=== PATIENT | female | born 1990 | race Caucasian/White ===

== ENCOUNTER 2016-08-10 15:24 | Inpatient (IN) | payer OTHER ==
[~2016-08-10] VITALS: Ht 162.6 cm; Wt 69.3 kg
[~2016-08-10 15:24] MED LIST: OXYC-466 PO; POLY17PO6 PO; SULF1TAB34 PO
[2016-08-10 15:35] VITALS: BP 125/75; PULSE 113; RESP 18; O2SAT 100
[2016-08-10 18:51] LABS: BASOPHILS % (AUTO) 0.3 % (0-3); EOSINOPHILS % (AUTO) 1.1 % (0-5); MONOCYTES % (AUTO) 8.4 % (4-12); Mean Corpuscular Hemoglobin 25.4 pg (27.0-35.0); Mean Corpuscular Volume 77.1 fL (81-100); NEUTROPHILS % (AUTO) 70.7 % (40-74); Platelet Count 363 bil/L (150-400)
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
[2016-08-10 20:11] VITALS: BP 96/55; PULSE 99; RESP 18; O2SAT 100
--- NOTE | 2016-08-10 20:54 | DRSVH ---
PROCEDURE: US EXTREMITY SONOGRAM LIMITED ([id number]) INDICATIONS: Multiple Abscess TECHNIQUE: Real-time scanning was performed of the bilateral hip regions, with image documentation. COMPARISON: None. FINDINGS: There are large regions of subcutaneous edema on the bilateral hips delineated by the ecological technical officer during the study. Within these regions are multiple small cystic areas, some of which have an anecho ic appearance, some of which have a more complex appearance suggesting phlegmon. The largest complex fluid collection on the right side measures 6.4 x 3.2 x 7.5 cm. The largest cystic region on the righ t side measures 2.2 x 1.0 x 1.3 cm. The largest cystic region on the left side measures 1.8 x 0.9 x 1 .5 cm. IMPRESSION: 1. Diffuse cellulitis bilaterally overlying the hips as described above. Multiple cystic-appearing re gions within suggest the presence of multiple subcutaneous abscess these. Additionally, there is a la rge complex fluid collection overlying the right hip suspicious for phlegmon. These findings were discussed with Dr. Zendejas and Dr. Huber at the time of the study by the [place] [facility] department tech. Dictated by: Candace Aguiar M.D. on 08/10/2016 at 20:52 Approved by: Candace Aguiar M.D. on 08/10/2016 at 20:52
[2016-08-10] MEDS ORDERED: HYDROmorphone 1 mg/mL Inj IVPUSH ONE ×2 (21:40→23:10)
[2016-08-10] MEDS ORDERED: Clindamycin Inj 600 MG in IV Premix 1 EACH IV ONE (21:55)
[2016-08-10] MEDS ORDERED: CeFAZolin Inj 2 GM in IV Premix 1 EACH IV ONE (21:55)
[2016-08-10 21:58] VITALS: BP 113/72; PULSE 91; RESP 18; O2SAT 97
--- NOTE | 2016-08-10 22:15 | DRSVH ---
PROCEDURE: CT PELVIS WITH CONTRAST ([id number]) INDICATIONS: Abscess multiple Bilateral TECHNIQUE: After the administration of intravenous contrast, 5 mm thick sections acquired from the iliac crests to the symphysis. 5 mm coronal and sagittal reformats were acquired. For radiation dose reduction, the following was used: automated exposure control, adjustment of mA and/or kV according to patient size. COMPARISON: None. FINDINGS: Image quality: Excellent. Peritoneum and bowel: A large amount of inspissated stool is present within the visualized portions o f the colon. Genitourinary: Bladder wall thickness is normal. The uterus and ovaries are grossly unremarkable. Nodes and vessels: There are multiple enlarged bilateral inguinal lymph nodes. Distal enlarged iliac chain lymph nodes are present as well. Iliac vessels demonstrate normal size and enhancement. Bones: No suspicious bony lesions. No suspicious cortical thinning to suggest osteomyelitis. Miscellaneous: No inguinal hernias. There is diffuse fat stranding throughout the subcutaneous tiss ues overlying the buttocks bilaterally. There is a discrete right-sided fluid collection measures 2.8 x 2.9 x 4.4 cm. There are multiple punctate foci of subcutaneous gas bilaterally. No other discrete rim-enhancing fluid collections visualized. IMPRESSION: 1. Diffuse fat stranding throughout the subcutaneous tissues overlying the bilateral buttocks as desc ribed above consistent with diffuse cellulitis. 2. Discrete rim-enhancing fluid collection within the right subcutaneous tissues as described above c onsistent with abscess/phlegmon. 3. Inguinal and iliac adenopathy, likely reactive in nature secondary to widespread infection. 4. Large amount of inspissated stool throughout the visualize portions of the colon. Dictated by: Candace Aguiar M.D. on 08/10/2016 at 22:13 Approved by: Candace Aguiar M.D. on 08/10/2016 at 22:13
[2016-08-10] MEDS ORDERED: Ondansetron 2 mg/mL 2 mL Inj IVPUSH PRN (22:30)
[2016-08-10] MEDS ORDERED: Alum-Mag Hydrox-Simeth 30 mL Suspension PO PRN (22:30)
[2016-08-10 23:18] VITALS: BP 108/71; PULSE 78; RESP 18; O2SAT 95
[2016-08-10 23:49] VITALS: BP 109/67; PULSE 88; RESP 18; O2SAT 95
[2016-08-11] VITALS (9 sets, daily range): BP systolic 99–122; BP diastolic 52–68; PULSE 64–97; RESP 11–19; O2SAT 94–100
[2016-08-11] MEDS ORDERED: 0.9% Sodium Chloride 1,000 ML IV SCH (01:26)
[2016-08-11] MEDS ORDERED: Polyethylene Glycol (PEG) 17 Gm Powder PO PRN (01:30)
--- NOTE | 2016-08-11 05:26 | NUR ---
Admit Pt arrived to [facility] room 238-1 from ED around 2345. Pt was able to self transfer to bed. PT is A&O x3 and able to ZAVALETA. Pt is stating 10/10 pain in her abscesses which are located on her buttocks as well as hips. Pt will be seen by surgery in AM. Pt is independent in room. 1-2 mg PRN Morphine available Q4 for pain and NS @ 100 was started. PT is oriented to hospital policies, call light and room. Pt is accompanied by her mother. VSS and pt is not on Tele.
--- NOTE | 2016-08-11 05:56 | PCM.HPMED ---
Subjective Date of Service Aug 11, 2016 Primary Provider: Admitting Physician: Abel Diaz MD Primary Care Physician: Nopcp Attending Physician: Abel Diaz MD Chief Complaint: buttock abscesses History of Present Illness: Patient is a 26 year old female with a pmh of iv drug abuse, ptsd and anxiety that is presenting with multiple buttock abscesses. Patient has been using heroin consistently for the past few months. Patient has been injecting heroin into her buttocks and as a result some of the sites have been infected. Patient claims that they usually start as a erythematous bump but then it evolves into a more painful and larger area of erythema. Patient continued to inject heroin around these areas and eventually they became too painful to bear. Patient is currently here for the aforementioned since these have evolved into karoline abscesses that require surgical drainage. Patient is currently in pain but stable. Review of Systems: Hematologic: No bleeding, No bruising Constitutional: Denies: Chills, Fever Respiratory: Denies: Shortness of breath, Wheezing Cardiovascular: Reports: Edema, Denies: Chest pain, Palpitations, Syncope GI: Reports: Constipation, Denies: Abdominal pain, Diarrhea, Nausea, Vomiting Skin: Reports Swelling, Denies Bruising Female: Denies: Dysuria, Hematuria, Pelvic pain, Neurologic: Denies: Bowel dysfunction, Change LOC, Dizziness, Focal weakness, Headache, Numbness, Problem walking, Weakness Psychiatric: Reports: Anxiety Allergies Coded Allergies: vancomycin (Verified Allergy, Mild, Rash at injection site, 08/10/16) Home Medications none PMH h/o substance abuse PTSD Anxiety Surgical History Appendectomy [place] teeth Family History mother is currently abusing narcotics Social History Hx Alcohol Use: No Hx Substance Use: Yes (Heroin user. used this afternoon) Hx Tobacco Use: Yes Smoking Status: Current Every Day Smoker Exam Vital Signs Vital Sign - Last Date Time Temp Pulse Resp B/P Pulse Ox O2 Delivery O2 Flow Rate FiO2 08/10/16 23:49 36.6 88 18 109/67 95 Room Air Exam General: Mild distress, well-developed, well-nourished, appropriately interactive HEENT: Normocephalic, atraumatic. External ears without defect. Pupils equal, round, and reactive to light and accommodation. Cardiovascular: Regular rate and rhythm with no murmurs, rubs, or gallops appreciated Pulmonary: Clear to auscultation bilaterally with no crackles, wheezes, or rhonchi. Normal respiratory effort with no use of accessory muscles. Extremities: Upper posterior and lateral thighs/buttock area bilaterally erythematous with tenderness to palpation. Patient does have raised 5 cm x 5 cm significant swelling right buttock. Neurological: Cranial nerves grossly intact. Normal muscle strength, tone, and bulk. Reflexes, coordination, and sensory function within normal limits. No known gait impairment. Psychiatric: Normal mood and affect. Alert and oriented to person, place, and time. Lab and Diagnostics Result Diagram: 08/10/16184408/10/162054 X-Rays, CTs and MRIs US EXTREMITY SONOGRAM LIMITED IMPRESSION: 1. Diffuse cellulitis bilaterally overlying the hips as described above. Multiple cystic-appearing regions within suggest the presence of multiple subcutaneous abscess these. Additionally, there is a large complex fluid collection overlying the right hip suspicious for phlegmon. Dictated by: Candace Aguiar M.D. on 08/10/2016 at 20:52 CT PELVIS WITH CONTRAST ([id number]) IMPRESSION: 1. Diffuse fat stranding throughout the subcutaneous tissues overlying the bilateral buttocks as described above consistent with diffuse cellulitis. 2. Discrete rim-enhancing fluid collection within the right subcutaneous tissues as described above consistent with abscess/phlegmon. 3. Inguinal and iliac adenopathy, likely reactive in nature secondary to widespread infection. 4. Large amount of inspissated stool throughout the visualize portions of the colon. Assessment & Plan Patient is a 26 year old female that is presnting with multiple abscesses in her buttocks secondary to injecting heroin. Patient is currently stable. Buttocks Abscess - Patient has multiple areas of abscesses as seen on ct and ultrasound - Surgery was consulted and they are on board for I&D today. - Patient is allergic to penicillins, so patient was started on clindamycin and ancef - Areas of cellulits were marked to monitor for progression - follow up am labs for coagulation profile and repeat cbc - wound care after I and D is done IV drug abuse - Patient is a known heroin abuser - Patient claims that she is ready to quit - Will provide assistance in terms of methadone program or as patient has expressed interest in suboxone treatment - will use opiate judiciously while in patient Smoking abuse - Patient smoke cigarettes - pt again claims she is ready to quit - will provide nicotine patch if necessary Hematuria - Patient claims that she has persistent hematuria - Patient has an appropriate hemoglobin level - will obtain UA Pt lives at home with her bf Dvt ppx via enoxaparin GI ppx not warranted Abel Diaz MD Aug 11, 2016 05:56
[2016-08-11] MEDS ORDERED: CeFAZolin Inj 1 GM in IV Premix 1 EACH IV SCH (08:30)
[2016-08-11] MEDS ORDERED: Clindamycin Inj 600 MG in IV Premix 1 EACH IV SCH (08:30)
[2016-08-11] MEDS ORDERED: Dexamethasone 4 mg/mL Inj IVPUSH PRN (10:35)
[2016-08-11] MEDS ORDERED: HYDROmorphone 1 mg/mL Inj IVPUSH PRN (10:35)
[2016-08-11] MEDS ORDERED: Lactated Ringer's 500 ML IV PRN (10:35)
[2016-08-11] MEDS ORDERED: Ondansetron 2 mg/mL 2 mL Inj IVPUSH PRN (10:35)
[2016-08-11] MEDS ORDERED: Phenylephrine 10,000 mCg/mL Inj IVPUSH PRN (10:35)
[2016-08-11] MEDS ORDERED: Lactated Ringer's 1,000 ML IV SCH (10:35)
[2016-08-11] MEDS ORDERED: EPHEDrine Sulfate 50 mg/mL Inj IVPUSH PRN (10:35)
[2016-08-11] MEDS ORDERED: MetoCLOpramide 5 mg/mL 2 mL Inj IVPUSH PRN (10:35)
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
[2016-08-11] MEDS ORDERED: Lactated Ringer's 1,000 ML IV ONE (10:47)
--- NOTE | 2016-08-11 10:51 | NUR ---
Social Work Note: Screen Note Data& Assessment: EMR reviewed. Patient is a 26 year old female admitted on 08/10/2015 with multiple abscess secondary to heroin use. Pt has Daniele ECKERT for insurance coverage. Patient does not have a primary care listed. Pt lives in [place] with family and is independent at baseline. Pt is currently Ambulates/BRP in her room. SW will access for CD resources. SW to continue to follow if any needs arise. Plan: Anticipated discharge home via POV when medically ready. SW will access for CD resources. SW to continue to follow if any needs arise. Millicent Luna, FRANKIE, ACM
[2016-08-11 10:58] LABS: APPEARANCE,URINE HAZY (CLEAR,HAZY); COLOR,URINE DARK YELLOW (YELLOW)
[2016-08-11 10:59] LABS: OCCULT BLOOD,URINE NEGATIVE (NEGATIVE); UROBILINOGEN,URINE NORMAL (NORMAL)
[2016-08-11] MEDS ORDERED: Bupivacaine-MPF 0.5% W/EPI 30 mL Inj INFILTRATE ONE (11:10)
--- NOTE | 2016-08-11 11:24 | PCM.ANEP1 ---
Post Anesthesia Phase 1 PACU Phase 1 Assessment Vital Signs Vital Signs Date Time Temp Pulse Resp B/P Pulse Ox O2 Delivery O2 Flow Rate FiO2 08/11/16 06:16 36.9 64 18 99/53 100 Room Air Anesthetic Administered: GA Level of Alertness: Awake, talking ZAVALETA's with Equal Strength: Yes Pain: Yes Pain Scale Score: 10 Nausea or Vomiting: No Oxygen Delivery: Room Air Lungs: Clear to Auscultation Dermatome Level: Full Sensation Edgard Helms MD Aug 11, 2016 11:24
[2016-08-11] MEDS ORDERED: Acetaminophen IV 1,000 MG in IV Premix 1 EACH IV PRN (11:25)
--- NOTE | 2016-08-11 11:34 | NUR ---
[place] Patient brought to OR via gurney. A/O x4. Denies n/v, pain level 9/10.
[2016-08-11] MEDS: fentaNYL-PF 50 mCg/mL 2 mL Inj IVPUSH PRN ×2 (11:40→11:50)
--- NOTE | 2016-08-11 11:53 | CONS ---
[address] [address] CONSULTATION REPORT PATIENT: GIDEON GREGORIO : 1990 MR#: [id number] ADMIT: 08/10/2016 JOB ID: [id number] DATE OF SERVICE: 08/11/2016 CHIEF COMPLAINT/IDENTIFICATION: I am asked to see this 26-year-old female with buttock and hip soft tissue infection. HISTORY OF PRESENT ILLNESS: The patient reports injecting herself in her buttocks and hips with heroin with most recent injection being within the past 12 hours. She has had previous incision and drainage. PAST MEDICAL HISTORY: Substance abuse, PTSD, anxiety, appendectomy, tooth extraction. MEDICATIONS: None. ALLERGIES: VANCOMYCIN. SOCIAL HISTORY: Negative alcohol. Current tobacco use. Mother is here with the patient and has a history of narcotic use. FAMILY HISTORY: Not pertinent. REVIEW OF SYSTEMS: Not pertinent. PHYSICAL EXAMINATION: Tearful woman who immediately is asking for pain medications when I walk into the room. Vital signs: She is afebrile. Vital signs are stable. Direct examination of her buttocks and hips reveals marked induration throughout her buttocks but without subcutaneous crepitus. She does have induration on the buttocks and on the left hip but an obvious fluctuant mass on the right hip. LABORATORY DATA: Hematocrit is 31. White count is 14. Chemistries within normal limits. Lactic acid was 1.1. IMAGING: The patient had a CT scan of the pelvis, and I have reviewed the report and the films. This demonstrates what appears to be an abscess on the right hip and findings most consistent with cellulitis on the buttocks but with some little bubbles of air on the subcutaneous tissues of the buttocks. IMPRESSION AND PLAN: A 26-year-old otherwise healthy woman except for her substance abuse with an obvious right hip abscess. I think that the subcutaneous air on the buttocks represents her subcutaneous injection rather than a necrotizing soft tissue infection based on her clinical picture. We will go to the operating room today, and I will drain her hip abscess. I will also take as another close look at her buttocks to make certain that we are not having some sort of progressive soft tissue gas-producing infection. ADDITIONAL INFORMATION: My postoperative recommendation for pain control would be to not give her any intravenous narcotics but restrict her to intravenous acetaminophen and p.o. Motrin, not as a punitive or judgmental action but because her underlying disease is one of IV substance abuse. I believe that the minimal added analgesic benefit that she will receive from intravenous Dilaudid or morphine compared to IV acetaminophen and p.o. Motrin is far outweighed by continuing her on her intravenous narcotic use. Addenda added by JUAN 08/11/16 at 1:22pm
--- NOTE | 2016-08-11 11:57 | OP ---
[address] [address] OPERATIVE REPORT PATIENT: GIDEON GREGORIO : 1990 MR#: [id number] ADMIT: 08/10/2016 JOB ID: [id number] DATE OF SURGERY: 08/11/2016 PREOPERATIVE DIAGNOSIS(ES): Right hip abscess. POSTOPERATIVE DIAGNOSIS(ES): Right hip abscess. PROCEDURE: Incision and drainage right hip abscess. SURGEON: Kade Gill MD INDICATIONS: A 26-year-old female with a right hip abscess, as well as concerns regarding cellulitis with some subcu air on her buttocks. FINDINGS: See below. DESCRIPTION OF PROCEDURE: The patient was brought to the operating room, and general anesthetic was administered with an LMA device. She was positioned on her left hip. Prior to positioning, I had an opportunity to examine the left hip. Then after positioning, I examined both bilateral buttocks. Induration was no different than it had been when I had seen her several hours previously, and there is no subcutaneous air. There was no fluctuance except the obvious fluctuance on the right hip. Clinically, it did not appear that she had a necrotizing soft tissue infection but that the subcutaneous air seen on her CT scan more likely represented her self injection. After prepping and draping the right hip in a sterile fashion and aspirating it for approximately 3 cc of brown pus, we did our surgical time-out, followed scope protocol. She was on therapeutic antibiotics. After prepping and draping the area in question, I made a longitudinal incision directly over the pus pocket and expressed several hundred cc of purulent material mixed chocolate and white pus. I now T'ed the incision up for approximately 2 cm and then irrigated out the cavity, breaking up all loculations and making certain that the fascial planes were intact. The cavity was approximately 12 x 10 x 7 cm, and after irrigation and checking for adequate hemostasis, we unpacked the wound and put a dry dressing on. Patient is recovering in Anesthesia right now.
--- NOTE | 2016-08-11 12:00 | NUR ---
back to room Patient return to room from surgery, pain level of 9/10. Right hip covered with dressing no drainage. Made comfortable.
--- NOTE | 2016-08-11 12:07 | PCM.ANEP2 ---
Post Anesthesia Evaluation ASA/CMS Post Anesthesia VS in Patient's Normal Range?: Yes Resp Stable; Airway Patent?: Yes CV Function & Hydration Stable: Yes Mental Status Recovered?: Yes Pain control Satisfactory?: Yes N/V Control Satisfactory?: Yes Edgard Helms MD Aug 11, 2016 12:07
[2016-08-11] MEDS ORDERED: HYDROcodone-APAP 5-325 mg Tablet PO PRN (15:10)
[2016-08-11] MEDS ORDERED: Phenylephrine/NS-PF 100 mCg/mL 5 mL Syringe IVPUSH ONE (15:46)
[2016-08-11] MEDS ORDERED: HYDROmorphone 2 mg/mL Inj ONE (15:46)
[2016-08-11] MEDS ORDERED: Ondansetron 2 mg/mL 2 mL Inj ONE (15:46)
[2016-08-11] MEDS ORDERED: Ketamine 10 mg/mL 20 mL Inj ONE (15:46)
[2016-08-11] MEDS ORDERED: Dexamethasone 4 mg/mL Inj ONE (15:46)
[2016-08-11] MEDS ORDERED: fentaNYL-PF 50 mCg/mL 2 mL Inj ONE (15:46)
[2016-08-11] MEDS ORDERED: Propofol 10,000 mCg/mL 20 mL Inj ONE (15:46)
--- NOTE | 2016-08-11 16:00 | NUR ---
MALINA Patient decided to be discharge MALINA, waiver signed, explained to patient the risk and she understood. She will follow up with out patient on Monday. Vicodin one tablet given for pain management prior to discharge. All belongings were given. Home accompanied by her mom.
--- NOTE | 2016-08-11 21:22 | PCM.DC.MED ---
Discharge Summary Date of Service Aug 11, 2016 Dates of Hospitalization Date of Hospital Admission Aug 10, 2016 at 22:12 Date of Discharge: Aug 11, 2016 Providers: Admitting Physician: Abel Diaz MD Primary Care Physician: Nopvan Attending Physician: Abel Diaz MD Procedures XRay, CTs & MRIs US EXTREMITY SONOGRAM LIMITED IMPRESSION: 1. Diffuse cellulitis bilaterally overlying the hips as described above. Multiple cystic-appearing regions within suggest the presence of multiple subcutaneous abscess these. Additionally, there is a large complex fluid collection overlying the right hip suspicious for phlegmon. Dictated by: Candace Aguiar M.D. on 08/10/2016 at 20:52 CT PELVIS WITH CONTRAST ([id number]) IMPRESSION: 1. Diffuse fat stranding throughout the subcutaneous tissues overlying the bilateral buttocks as described above consistent with diffuse cellulitis. 2. Discrete rim-enhancing fluid collection within the right subcutaneous tissues as described above consistent with abscess/phlegmon. 3. Inguinal and iliac adenopathy, likely reactive in nature secondary to widespread infection. 4. Large amount of inspissated stool throughout the visualize portions of the colon. Brief History Patient is a 26 year old female with a pmh of iv drug abuse, ptsd and anxiety that is presenting with multiple buttock abscesses. Patient has been using heroin consistently for the past few months. Patient has been injecting heroin into her buttocks and as a result some of the sites have been infected. Patient claims that they usually start as a erythematous bump but then it evolves into a more painful and larger area of erythema. Patient continued to inject heroin around these areas and eventually they became too painful to bear. Patient is currently here for the aforementioned since these have evolved into karoline abscesses that require surgical drainage. Patient is currently in pain but stable. Hospital Course Patient is a 26 year old female that is presnting with multiple abscesses in her buttocks secondary to injecting heroin. Following surgery the patient became upset about pain medications, she left AMA despite recommendations to stay. Buttocks Abscess - Patient has multiple areas of abscesses as seen on ct and ultrasound - Surgery was consulted and they are on board for I&D today. - Patient is allergic to penicillins, so patient was started on clindamycin and ancef - Areas of cellulits were marked to monitor for progression - follow up am labs for coagulation profile and repeat cbc - wound care after I and D is done IV drug abuse - Patient is a known heroin abuser - Patient claims that she is ready to quit - Will provide assistance in terms of methadone program or as patient has expressed interest in suboxone treatment - will use opiate judiciously while in patient Smoking abuse - Patient smoke cigarettes - pt again claims she is ready to quit - will provide nicotine patch if necessary Hematuria - Patient claims that she has persistent hematuria - Patient has an appropriate hemoglobin level - will obtain UA Pt lives at home with her bf Dvt ppx via enoxaparin GI ppx not warranted Exam Vital Signs (Last) Date Time Temp Pulse Resp B/P Pulse Ox O2 Delivery O2 Flow Rate FiO2 08/11/16 13:37 36.7 88 19 110/68 96 Room Air Test 08/10/16 18:45 08/10/16 19:05 08/10/16 20:55 White Blood Count 14.3th/mm3 (3.8-10.1) Red Blood Count 4.10mil/mm3 (3.90-5.20) Hemoglobin 10.4g/dL (12.0-15.6) Hematocrit 31.6% (35.0-46.0) Mean Corpuscular Volume 77.1fL (81-100) Mean Corpuscular Hemoglobin 25.4pg (27.0-35.0) Mean Corpuscular Hemoglobin Concent 32.9% (32.0-37.0) Red Cell Distribution Width 15.6% (12.3-15.4) Platelet Count 363bil/L (150-400) Neutrophils (%) (Auto) 70.7% (40-74) Lymphocytes (%) (Auto) 19.1% (14-46) Monocytes (%) (Auto) 8.4% (4-12) Eosinophils (%) (Auto) 1.1% (0-5) Basophils (%) (Auto) 0.3% (0-3) Urine Color Dark yellow (YELLOW) Urine Appearance Hazy (CLEAR,HAZY) Urine pH 6.0 (5.0-8.0) Urine Specific [place] 1.020 (1.003-1.035) Urine Protein Negativemg/dL (NEG,TRACE) Urine Glucose (UA) Negativemg/dL (NEGATIVE) Urine Ketones Negativemg/dL (NEGATIVE) Urine Occult Blood Negative (NEGATIVE) Urine Nitrite Negative (NEGATIVE) Urine Bilirubin Negative (NEGATIVE) Urine Urobilinogen Normalmg/dL (NORMAL) Urine Leukocyte Esterase Negative (NEGATIVE) Hold Urine Received (Received) Sodium Level 137mEq/L (134-144) Potassium Level 4.5mEq/L (3.5-5.2) Chloride Level 99mEq/L (97-108) Carbon Dioxide Level 23mmol/L (18-29) Blood Urea Nitrogen 10mg/dL (6-20) Creatinine 0.57mg/dL (0.57-1.00) Estimat Glomerular Filtration Rate 184mL/min (>59) Glucose Level 87mg/dL (60-99) Lactic Acid Level 1.1mmol/L (0.4-2.0) Calcium Level 9.0mg/dL (8.5-10.1) Total Bilirubin 0.4mg/dL (0.0-1.2) Aspartate Amino Transf (AST/SGOT) 15U/L (0-50) Alanine Aminotransferase (ALT/SGPT) 10U/L (0-32) Alkaline Phosphatase 108U/L (25-150) Total Protein 7.4g/dL (6.4-8.4) Albumin 3.4g/dL (3.4-5.0) Haroldo Mitchell DO Aug 11, 2016 21:22
== END 2016-08-11 15:47 | disposition left against medical advice (07) | DRG 383 ==
LOC: SED 15:24 → MHC 22:12 → MOC 23:41
PROVIDERS: ADMIT Internal Medicine; ATTEND Internal Medicine
PROC: 0H9HXZZ Drainage of Right Upper Leg Skin, External Approach (ICD-10-PCS; principal; 2016-08-11 10:00)
DX: L02.415 Cutaneous abscess of right lower limb (principal); L03.317 Cellulitis of buttock; F11.10 Opioid abuse, uncomplicated; F17.210 Nicotine dependence, cigarettes, uncomplicated; F41.9 Anxiety disorder, unspecified

== ENCOUNTER 2016-08-16 12:32 | Emergency (ER) | payer OTHER ==
[~2016-08-16] VITALS: Ht 160 cm; Wt 69.1 kg
[2016-08-16 12:37] VITALS: BP 136/89; PULSE 91; RESP 16; O2SAT 99
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
[2016-08-16] MEDS ORDERED: 0.9% Sodium Chloride 1,000 ML IV ONE (16:51)
[2016-08-16] MEDS ORDERED: cefTRIAXone Inj 2,000 MG in IV Premix 1 EACH IV SCH (16:55)
[2016-08-16] MEDS ORDERED: Clindamycin Inj 900 MG in IV Premix 1 EACH IV ONE (16:55)
[2016-08-16] MEDS ORDERED: HYDROmorphone 1 mg/mL Inj IM ONE ×2 (18:05→19:35)
[2016-08-16] MEDS ORDERED: Ondansetron 2 mg/mL 2 mL Inj ONE (19:49)
[2016-08-16] MEDS: HYDROmorphone 1 mg/mL Inj IVPUSH PRN ×3 (19:57→22:30)
[2016-08-16 20:12] LABS: BASOPHILS % (AUTO) 0.2 % (0-3); EOSINOPHILS % (AUTO) 0.1 % (0-5); MONOCYTES % (AUTO) 3.2 % (4-12); Mean Corpuscular Hemoglobin 24.6 pg (27.0-35.0); Mean Corpuscular Volume 78.2 fL (81-100); NEUTROPHILS % (AUTO) 84.2 % (40-74); Platelet Count 450 bil/L (150-400)
[2016-08-16 20:26] LABS: Magnesium 2.3 mg/dL (1.6-2.6)
[2016-08-16 20:30] VITALS: BP 121/70; PULSE 72; RESP 18; O2SAT 98
--- NOTE | 2016-08-16 21:24 | DRSVH ---
PROCEDURE: CT PELVIS WITH CONTRAST ([id number]) INDICATIONS: worsening right hip pain, h/o abscess TECHNIQUE: After the administration of intravenous contrast, 5 mm thick sections acquired from the iliac crests to the symphysis. 5 mm coronal and sagittal reformats were acquired. For radiation dose reduction, the following was used: automated exposure control, adjustment of mA and/or kV according to patient size. COMPARISON: FINDINGS: Image quality: Excellent. Peritoneum and bowel: Bowel loops demonstrate normal wall thickness and caliber. No free fluid or a ir. Genitourinary: Bladder wall thickness is normal. Nodes and vessels: No iliac, pelvic, or inguinal adenopathy by size criteria. Iliac vessels demonst rate normal size and enhancement. Bones: No suspicious bony lesions. Miscellaneous: No inguinal hernias. There is bilateral subcutaneous edematous change and in addition on the right a skin lesion with a bandage within the wound.. No extension of the inflammatory tissue s to the bone is seen particularly on the right. No involvement of the gluteal muscles is seen either . No evidence for undrained fluid is identified. IMPRESSION: 1. Inflammatory changes in the subcutaneous tissues but no involvement of muscles or bones can be see n. Cause of the pain in the right hip is not identified . 2. Since the previous CT of there has been drainage of the subcutaneous abscess in the right latera l hip level. Dic4/[address] [place] [address], CT, CT PELVIS W ABNER, 08/10/2016, 21:41. tated by: Mauricio Gar M.D. on 08/16/2016 at 21:22 Approved by: Mauricio Gar M.D. on 08/16/2016 at 21:22
[2016-08-16] MEDS ORDERED: _oxyCODONE/APAP 5-325 mg Tablet PO PRN (22:10)
[2016-08-16 23:11] VITALS: BP 124/78; PULSE 94; RESP 16; O2SAT 98
== END 2016-08-16 22:45 | disposition home or self-care (01) ==
LOC: SED 12:32
DX: L02.31 Cutaneous abscess of buttock (principal); R50.9 Fever, unspecified; F17.200 Nicotine dependence, unspecified, uncomplicated; Z88.1 Allergy status to other antibiotic agents
CPT/HCPCS: 36415; 72193; 80053; 83605; 83735; 85025; 87040; 96361; 96365; 96367; 96372; 96375; 99285; J0696; J1170; J2405; J7030; Q9967

== ENCOUNTER 2016-08-31 10:19 | Emergency (ER) | payer OTHER ==
[~2016-08-31] VITALS: Ht 162.6 cm; Wt 69.1 kg
[2016-08-31 10:23] VITALS: BP 134/79; PULSE 113; RESP 16; O2SAT 98
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
== END 2016-08-31 11:54 | disposition home or self-care (01) ==
LOC: SED 10:36
DX: L02.31 Cutaneous abscess of buttock (principal); L02.416 Cutaneous abscess of left lower limb; K92.1 Melena; F17.200 Nicotine dependence, unspecified, uncomplicated; Z88.1 Allergy status to other antibiotic agents

== ENCOUNTER 2016-08-31 15:31 | Observation (INO) | payer OTHER ==
[2016-08-31] VITALS (11 sets, daily range): BP systolic 118–138; BP diastolic 62–97; PULSE 66–123; RESP 11–21; O2SAT 97–100
[~2016-08-31] VITALS: Ht 162.6 cm; Wt 70.2 kg
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
[2016-08-31] MEDS ORDERED: HYDROmorphone 1 mg/mL Inj IVPUSH ONE ×2 (16:30→17:35)
[2016-08-31 16:36] LABS: BASOPHILS % (AUTO) 0.3 % (0-3); EOSINOPHILS % (AUTO) 0.6 % (0-5); Mean Corpuscular Hemoglobin 25.3 pg (27.0-35.0); NEUTROPHILS % (AUTO) 73.6 % (40-74); Platelet Count 283 bil/L (150-400)
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
[2016-08-31] MEDS ORDERED: Alum-Mag Hydrox-Simeth 30 mL Suspension PO PRN (18:05)
[2016-08-31] MEDS ORDERED: Ondansetron 2 mg/mL 2 mL Inj IVPUSH PRN ×2 (18:05→18:10)
[2016-08-31] MEDS ORDERED: Lactated Ringer's 1,000 ML IV SCH (18:06)
[2016-08-31] MEDS ORDERED: Lactated Ringer's 500 ML IV PRN (18:06)
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
[2016-08-31] MEDS ORDERED: Phenylephrine 10,000 mCg/mL Inj IVPUSH PRN (18:10)
[2016-08-31] MEDS ORDERED: MetoCLOpramide 5 mg/mL 2 mL Inj IVPUSH PRN (18:10)
[2016-08-31] MEDS ORDERED: hydrALAZINE 20 mg/mL Inj IVPUSH PRN (18:10)
[2016-08-31] MEDS ORDERED: Labetalol 5 mg/mL 4 mL Inj IV PRN (18:10)
[2016-08-31] MEDS ORDERED: Atropine 0.4 mg/mL Inj IVPUSH PRN (18:10)
[2016-08-31] MEDS ORDERED: EPHEDrine Sulfate 50 mg/mL Inj IVPUSH PRN (18:10)
[2016-08-31] MEDS ORDERED: Dexamethasone 4 mg/mL Inj IVPUSH PRN (18:10)
[2016-08-31] MEDS ORDERED: Lactated Ringer's 1,000 ML IV ONE (18:26)
[2016-08-31] MEDS ORDERED: Bupivacaine-MPF 0.5% W/EPI 30 mL Inj INFILTRATE ONE (18:44)
[2016-08-31] MEDS: fentaNYL-PF 50 mCg/mL 2 mL Inj IVPUSH PRN ×2 (19:30→19:50)
[2016-08-31] MEDS: HYDROmorphone 1 mg/mL Inj IVPUSH PRN ×2 (19:30→19:50)
--- NOTE | 2016-08-31 19:32 | PCM.ANEP1 ---
Post Anesthesia Phase 1 PACU Phase 1 Assessment Date of Service: Aug 31, 2016 Vital Signs Vital Signs Date Time Temp Pulse Resp B/P Pulse Ox O2 Delivery O2 Flow Rate FiO2 08/31/16 17:58 100 16 133/86 98 Room Air 08/31/16 15:43 37.6 123 20 138/97 98 Room Air Anesthetic Administered: GA Level of Alertness: Awake, talking ZAVALETA's with Equal Strength: Yes Pain: Yes Nausea or Vomiting: No Oxygen Delivery: Simple Mask Lungs: Normal Air Movement Natalio Swain MD Aug 31, 2016 19:32
--- NOTE | 2016-08-31 19:33 | PCM.ANEP2 ---
Post Anesthesia Evaluation ASA/CMS Post Anesthesia Date of Service: Aug 31, 2016 VS in Patient's Normal Range?: Yes Resp Stable; Airway Patent?: Yes CV Function & Hydration Stable: Yes Mental Status Recovered?: Yes Pain control Satisfactory?: Yes N/V Control Satisfactory?: Yes Natalio Swain MD Aug 31, 2016 19:33
--- NOTE | 2016-08-31 19:56 | OP ---
[address] [address] OPERATIVE REPORT PATIENT: GIDEON GREGORIO : 1990 MR#: [id number] ADMIT: 08/31/2016 JOB ID: [id number] DATE OF SURGERY: 08/31/2016 SURGEON: Basia Hughes MD PREOPERATIVE DIAGNOSIS(ES): Abscesses of the left proximal thigh, buttock, and hip. POSTOPERATIVE DIAGNOSIS(ES): Abscesses of the left proximal thigh, buttock, and hip; cellulitis. PROCEDURE PERFORMED: 1. Incision and drainage of abscesses x2, 2 cm each; one of the left hip and one of the left buttock. 2. Aspiration of subcutaneous abscesses x4; ultrasound guidance. HISTORY OF PRESENT ILLNESS: This is a 26-year-old woman with a history of IV and intramuscular heroin use who presented with abscesses of the left buttock, thigh, and hip. She had fluctuance, erythema, and pain, with small fluid collections seen on bedside ultrasound in the emergency department. FINDINGS: Several small abscesses, two of which were incised and drained, four of which were aspirated. Cultures were sent of the fluid from the largest of the abscess cavities. DESCRIPTION OF PROCEDURE: The patient was brought to the operating room and placed in supine position. General anesthesia was induced. A warming blanket was placed. Antibiotics were infused. She was repositioned into modified right lateral decubitus position. Pressure points were padded. The operative field was prepped and draped in a sterile fashion. A pause was performed to confirm the correct patient, procedure, site, and side. An 18 gauge needle was used to aspirate the most fluctuant of locations on the left hip, in the middle of a large patch of cellulitis. An abscess cavity was found and a small elliptical portion of skin was removed using electrocautery to unroof this cavity. Purulent fluid was sent for culture. It was irrigated and hemostasis was obtained. She had fluctuance at multiple additional areas of the subcutaneous tissue on the proximal thigh, hip, and buttock. An ultrasound was used to scan all of these regions, and several additional fluid collections were found. There was one on the lateral left buttock which was also incised and drained, approximately 2 cm x 1 cm in size. Four additional abscess cavities were aspirated and purulent fluid was sent for culture. On ultrasound, there were no large cavities or abscesses other than the small ones which were aspirated and incised. Marcaine 0.5% with epinephrine was injected at the incision and drainage sites. They were packed with moist gauze. Sterile dressing was placed. The patient was awakened from general anesthesia and taken to post procedural care unit in good condition. ESTIMATED BLOOD LOSS: 5 mL. SPECIMENS: Purulent fluid, sent for culture. COMPLICATIONS: None. DISPOSITION: Given that the primary pathology is associated cellulitis, she will be admitted for IV antibiotics.
--- NOTE | 2016-08-31 20:15 | NUR ---
Admit Patient arrived from OR to floor at 2014. Patient is A&Ox3. Vitals stable. Patient complains of left hip pain 05/16. Patient up independent to bathroom and around floor. Report given by Ros HARRISON.
[2016-08-31] MEDS ORDERED: Propofol 10,000 mCg/mL 20 mL Inj ONE (21:59)
[2016-08-31] MEDS ORDERED: Ketamine 10 mg/mL 20 mL Inj ONE (21:59)
[2016-08-31] MEDS ORDERED: Lidocaine PF 1% 30 mL Inj ONE (21:59)
[2016-08-31] MEDS ORDERED: fentaNYL-PF 50 mCg/mL 2 mL Inj ONE (21:59)
[2016-08-31] MEDS ORDERED: Dexamethasone 4 mg/mL Inj ONE (21:59)
[2016-08-31] MEDS ORDERED: Ondansetron 2 mg/mL 2 mL Inj ONE (21:59)
[2016-08-31] MEDS ORDERED: HYDROmorphone 2 mg/mL Inj ONE (21:59)
--- NOTE | 2016-08-31 22:25 | NUR ---
AMA Patient chose to leave hospital AMA at 2225. Patient stated that if she wasn't going to receive IV pain medication, she would be fine at home. IV was was removed. Patient filled out AMA paperwork. Patient left with family.
--- NOTE | 2016-09-06 13:59 | PCM.DC.SUR ---
Discharge Summary Date of Service: Sep 06, 2016 Date of Hospital Admission: Aug 31, 2016 at 20:14 Date of Discharge: Left AMA 08/31/16 Diagnosis at Time of Discharge Cellulitis Problems: Operation I&D left buttock/thigh abscesses Brief History and Physical: This is a 26-year-old woman who has injected heroin in the past and has a history of incision and drainage of bilateral thighs/buttocks by my partners, who presented with abscesses on the left thigh and buttock earlier today. Her white blood cell count is normal at 6.7. She is in pain and experiencing mild tachycardia, but otherwise appears stable. She was actually discharged from the emergency department and brought back for my assessment this afternoon. She is currently smoking heroin and last used it this morning by one report and last night by another report. Hospital Course: Pt underwent I&D and postoperatively was admitted for treatment of associated cellulitis. Oral but not IV pain medications were prescribed, which angered the patient, so she left AMA. Basia Hughes MD Sep 06, 2016 13:59
== END 2016-08-31 22:00 | disposition left against medical advice (07) ==
LOC: SED 15:31 → ORA 17:05 → OSC 20:14
PROVIDERS: ADMIT Surgery; ATTEND Surgery
DX: L02.31 Cutaneous abscess of buttock (principal); L02.416 Cutaneous abscess of left lower limb; M25.552 Pain in left hip; F11.20 Opioid dependence, uncomplicated; R00.0 Tachycardia, unspecified; F41.9 Anxiety disorder, unspecified; F43.10 Post-traumatic stress disorder, unspecified; Z87.891 Personal history of nicotine dependence; Z62.810 Personal history of physical and sexual abuse in childhood; Z91.410 Personal history of adult physical and sexual abuse
CPT/HCPCS: 10061; 36415; 36569; 75989; 80053; 81025; 85025; 87070; 87075; 87205; 96374; 96375; 99285; G0378; J0690; J1100; J1170; J2060; J2250; J2405; J3010; J7120

== ENCOUNTER 2016-09-10 17:46 | Emergency (ER) | payer OTHER ==
[~2016-09-10] VITALS: Ht 162.6 cm; Wt 68.2 kg
[2016-09-10 18:28] VITALS: BP 120/76; PULSE 109; RESP 18; O2SAT 100
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
[2016-09-10] MEDS ORDERED: oxyCODONE-Acetamin 10-325 mg Tablet PO ONE (20:10)
[2016-09-10] MEDS ORDERED: Trimethoprim-Sulfa 160 mg-800 mg Tablet PO ONE (20:10)
[2016-09-10] MEDS ORDERED: BUPR1TAB36 SL (21:14)
[2016-09-10] MEDS ORDERED: SULF1TAB7 PO (22:02)
[2016-09-10 22:12] VITALS: BP 123/79; PULSE 100; RESP 16; O2SAT 99
== END 2016-09-10 22:06 | disposition home or self-care (01) ==
LOC: SED 17:46
DX: L02.31 Cutaneous abscess of buttock (principal); M25.552 Pain in left hip; R10.9 Unspecified abdominal pain; R11.2 Nausea with vomiting, unspecified; F17.200 Nicotine dependence, unspecified, uncomplicated; Z88.1 Allergy status to other antibiotic agents

== ENCOUNTER 2016-09-12 17:00 | Emergency (ER) | payer OTHER ==
[~2016-09-12] VITALS: Ht 162.6 cm; Wt 65.9 kg
[~2016-09-12 17:00] MED LIST changes: +BUPR1TAB36 SL; -OXYC-466 PO; -POLY17PO6 PO; -SULF1TAB34 PO; +SULF1TAB7 PO
[2016-09-12 17:03] VITALS: BP 125/80; PULSE 82; RESP 16; O2SAT 100
[2016-09-12 19:30] VITALS: BP 119/76; PULSE 79; RESP 16; O2SAT 100
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
[2016-09-12] MEDS ORDERED: CLON2TAB PO (20:10)
[2016-09-12] MEDS ORDERED: LORazepam 2 mg Tablet PO ONE (20:10)
[2016-09-12 20:39] VITALS: BP 119/76; PULSE 79; RESP 16; O2SAT 100
== END 2016-09-12 20:41 | disposition home or self-care (01) ==
LOC: SED 17:00
DX: F13.230 Sedative, hypnotic or anxiolytic dependence with withdrawal, uncomplicated (principal); R56.9 Unspecified convulsions; S09.90XA Unspecified injury of head, initial encounter; W18.30XA Fall on same level, unspecified, initial encounter; Y93.89 Activity, other specified; Y92.89 Other specified places as the place of occurrence of the external cause; Y99.8 Other external cause status; Z87.891 Personal history of nicotine dependence; Z88.1 Allergy status to other antibiotic agents

== ENCOUNTER 2016-11-27 11:30 | Observation (INO) | payer OTHER ==
[~2016-11-27] VITALS: Ht 162.6 cm; Wt 59.1 kg
[2016-11-27] VITALS (13 sets, daily range): BP systolic 10–126; BP diastolic 56–79; PULSE 18–122; RESP 10–20; O2SAT 98–100
[~2016-11-27 11:30] MED LIST changes: +CLON2TAB PO
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
[2016-11-27] MEDS ORDERED: 0.9% Sodium Chloride 1,000 ML IV ONE ×2 (12:08→14:52)
[2016-11-27] MEDS ORDERED: Ondansetron 2 mg/mL 2 mL Inj IVPUSH PRN ×4 (12:10→16:35)
[2016-11-27 12:44] LABS: APPEARANCE,URINE CLOUDY (CLEAR,HAZY); COLOR,URINE YELLOW (YELLOW); OCCULT BLOOD,URINE NEGATIVE (NEGATIVE); UROBILINOGEN,URINE NORMAL (NORMAL)
[2016-11-27 13:48] LABS: BASOPHILS % (AUTO) 0.3 % (0-3); EOSINOPHILS % (AUTO) 0.8 % (0-5); Mean Corpuscular Hemoglobin 26.3 pg (27.0-35.0); Mean Corpuscular Volume 83.4 fL (81-100); NEUTROPHILS % (AUTO) 75.6 % (40-74); Platelet Count 344 bil/L (150-400)
[2016-11-27 14:15] LABS: INR 1.02 ratio
--- NOTE | 2016-11-27 14:27 | DRSVH ---
PROCEDURE: CT PELVIS WITH CONTRAST ([id number]) INDICATIONS: buttocks abscesses TECHNIQUE: After the administration of intravenous contrast, 5 mm thick sections acquired from the iliac crests to the symphysis. 5 mm coronal and sagittal reformats were acquired. For radiation dose reduction, the following was used: automated exposure control, adjustment of mA and/or kV according to patient size. COMPARISON: [facility], CT, CT PELVIS W CON, 08/16/2016, 20:45. FINDINGS: Image quality: Excellent. Peritoneum and bowel: Bowel loops demonstrate normal wall thickness and caliber. No free fluid or a ir. Genitourinary: Bladder wall thickness is normal. Nodes and vessels: No iliac, pelvic, or inguinal adenopathy by size criteria. Iliac vessels demonst rate normal size and enhancement. Bones: No suspicious bony lesions. Miscellaneous: No inguinal hernias. There is a 4.5 x 6.2 x 7.8 cm fluid collection in the subcutaneo us fat of the lower left buttock. Fluid collection has peripheral enhancement characteristic of an a bscess. There is a 1.8 x 4.9 x 3.6 cm fluid collection in the subcutaneous fat of the lower right bu ttock which has peripheral enhancement consistent with an abscess. Inflammatory stranding noted in t he subcutaneous fat of the buttocks bilaterally most consistent with cellulitis. IMPRESSION: 4.5 x 6.2 x 7.8 cm right buttock and 1.8 x 4.9 x 3.6 cm left buttock subcutaneous absces ses. Dictated by: Eli Garcia MD, PhD on 11/27/2016 at 14:23 Approved by: Eli Garcia MD, PhD on 11/27/2016 at 14:26
[2016-11-27] MEDS ORDERED: Clindamycin Inj 900 MG in IV Premix 1 EACH IV ONE (14:55)
[2016-11-27] MEDS ORDERED: Piperacillin-Tazo 3.375 Gm Inj 3.375 GM in Dextrose 5% Minibag Plus 50 ML IV ONE (14:55)
[2016-11-27] MEDS ORDERED: Alum-Mag Hydrox-Simeth 30 mL Suspension PO PRN ×2 (15:25→15:50)
[2016-11-27] MEDS ORDERED: 0.9% Sodium Chloride 1,000 ML IV SCH (15:47)
[2016-11-27] MEDS ORDERED: HYDROcodone-APAP 5-325 mg Tablet PO PRN (15:50)
[2016-11-27] MEDS ORDERED: Polyethylene Glycol (PEG) 17 Gm Powder PO PRN (15:50)
--- NOTE | 2016-11-27 15:59 | PCM.HPMED ---
Subjective Date of Service Nov 27, 2016 Primary Provider: Admitting Physician: Primary Care Physician: Vivek Attending Physician: Kaykay Sánchez MD Admit Status: From the Emergency Department Chief Complaint: Pain and swelling of buttock, right greater than left History of Present Illness: About 5-6 days ago she first noted pain and a "bump" on the left buttock which is been increasing in size and becoming more painful. She then noted one on the right but it 2 days ago and a second one on the right headache last evening , both of which are smaller than the one on the left. She says she has taken her temperature at home and not documented any fever but she does feel cold alternating with sweaty for a few hours during the night for the last few nights. Review of Systems: Unremarkable other than a URI a few weeks ago with some chest congestion which has cleared Allergies Coded Allergies: vancomycin (Verified Allergy, Mild, Rash at injection site, 08/31/16) Home Medications None PMH Heroin addiction PTSD ADHD Anxiety Surgical History Several past I&D's of abscesses Appendectomy [place] teeth removal Family History Both her parents are alive and well and she is not aware of any medical issues other than they have both had opioid addictions Social History Occupation: unemployed Hx Alcohol Use: No Hx Substance Use: Yes (Heroin user, $40 per day) Hx Tobacco Use: Yes Smoking Status: Current Every Day Smoker (a few cigarettes per day) Living Arrangement: with Family (recently moved back with her mom and stepfather, legally from ) Additional Information Has a 5-year-old son but the paternal grandparents have custody Exam Vital Signs Vital Sign - Last Date Time Temp Pulse Resp B/P Pulse Ox O2 Delivery O2 Flow Rate FiO2 11/27/16 14:17 36.5 79 15 102/58 100 Room Air Exam General: Alert and oriented, no acute distress HEENT: unremarkable Neck: Central line on right, bandage from attempt on the left Heart: Regular, no extra sounds Lungs: Clear Abdomen: Soft, non-tender Buttocks: On the left is a large erythematous, fluctuant mass and 2 smaller ones on the right Extremities: No pedal edema Neuro: no apparent deficit Lab and Diagnostics Result Diagram: 11/27/16 1330 11/27/16 1253 X-Rays, CTs and MRIs Date of Service: 11/27/16 1208 PROCEDURE: CT PELVIS WITH CONTRAST ([id number]) INDICATIONS: buttocks abscesses TECHNIQUE: After the administration of intravenous contrast, 5 mm thick sections acquired from the iliac crests to the symphysis. 5 mm coronal and sagittal reformats were acquired. For radiation dose reduction, the following was used: automated exposure control, adjustment of mA and/or kV according to patient size. COMPARISON: [facility], CT, CT PELVIS W CON, 08/16/2016, 20:45. FINDINGS: Image quality: Excellent. Peritoneum and bowel: Bowel loops demonstrate normal wall thickness and caliber. No free fluid or air. Genitourinary: Bladder wall thickness is normal. Nodes and vessels: No iliac, pelvic, or inguinal adenopathy by size criteria. Iliac vessels demonstrate normal size and enhancement. Bones: No suspicious bony lesions. Miscellaneous: No inguinal hernias. There is a 4.5 x 6.2 x 7.8 cm fluid collection in the subcutaneous fat of the lower left buttock. Fluid collection has peripheral enhancement characteristic of an abscess. There is a 1.8 x 4.9 x 3.6 cm fluid collection in the subcutaneous fat of the lower right buttock which has peripheral enhancement consistent with an abscess. Inflammatory stranding noted in the subcutaneous fat of the buttocks bilaterally most consistent with cellulitis. IMPRESSION: 4.5 x 6.2 x 7.8 cm right buttock and 1.8 x 4.9 x 3.6 cm left buttock subcutaneous abscesses. Assessment & Plan # Abscesses of the buttocks, related to injecting heroin - Dr. Chyna Posey plans on taking her to the operating room this evening for incision and drainage - In the emergency department and has received Zosyn IV and, because of her vancomycin allergy, clindamycin IV - We will continue clindamycin IV and await Gram stain and culture results from the I&D # Abnormal UA, possible UTI - Await culture results # Heroin addiction - She says she has been accepted for inpatient treatment starting December 02 - Will be receiving narcotics for postop pain Resuscitation Status: CPR: Attempt Resuscitation Kaykay Sánchez MD Nov 27, 2016 15:59
[2016-11-27] MEDS ORDERED: Lactated Ringer's 1,000 ML IV ONE ×2 (16:04→16:16)
--- NOTE | 2016-11-27 16:23 | CONS ---
[address] [address] CONSULTATION REPORT PATIENT: GIDEON GREGORIO : 1990 MR#: [id number] ADMIT: 11/27/2016 JOB ID: [id number] DATE OF SERVICE: 11/27/2016 HISTORY OF PRESENT ILLNESS: A 26-year-old female, who unfortunately is very experienced at the treatment of soft tissue abscesses from heroin addiction and injection. She is had recent abscesses drained on September 10, 2016, August 31, 2016, August 16, 2016, August 10, 2016, and obviously prior to that. She continues to inject, although she says she is signed up for inpatient detox starting this coming Monday. She knew she was getting abscesses. She stopped eating before midnight last night. She came to the emergency department. She was seen by Peewee Miller. She knew that she would need an EJ for IV access, which has been obtained. She is also being currently seen by Kaykay Sánchez from the hospitalist service, who will be accepting her after her trip to the operating room. CURRENT MEDICATIONS AT HOME: Are listed as Bactrim. Also buprenorphine/naloxone and clonazepam. ALLERGIES: VANCOMYCIN. She has been given clindamycin and Zosyn in the emergency department. HABITS: Smokes several cigarettes a day. SOCIAL HISTORY: She is obviously a heroin addict. Her boyfriend accompanies her. REVIEW OF SYSTEMS: Otherwise negative. PHYSICAL EXAMINATION: Incredibly pleasant woman, appearing stated age. No distress. BMI 22. Temperature 36.5, brachial blood pressure 102/58, pulse 79, respiratory rate 15, O2 sat room air 100%. HEENT: Nonjaundiced. Neck: Left EJ IV. Lungs: Clear. Cardiac exam: Regular rhythm. I did not appreciate murmurs. Buttocks: She has a large left buttock and a smaller one, if not two, right buttock abscesses. Multiple scars on hips and buttocks from previous incision and drainage. She does not have any crepitus. LABORATORY RESULTS: White blood cell count 11.9, hematocrit 36.7, platelet count 344,000. Electrolytes are normal. Creatinine 0.54. Glucose 107. Lactic acid 0.8. CT scan of the pelvis shows a 4.5 x 6.2 x 7.8 left buttock abscess and at 1.8 x 4.9 x 3.6 right buttock abscess. I think there are 2 on the right. There is no evidence of fasciitis. IMPRESSION: 1. Large left and 2 smaller right subcutaneous buttock abscesses from heroin addiction. 2. Heroin addiction. PLAN: As she is very well aware, she needs go the OR for incision and drainage. She has been through this many times as listed in the history and physical. She agrees to proceed. I will culture it and dressings likely will be able to be removed tomorrow and do conventional wound care. The patient seen for decision to operate. GERRY
[2016-11-27] MEDS ORDERED: Lactated Ringer's 500 ML IV PRN (16:33)
[2016-11-27] MEDS ORDERED: Lactated Ringer's 1,000 ML IV SCH (16:33)
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
[2016-11-27] MEDS ORDERED: Phenylephrine 10,000 mCg/mL Inj IVPUSH PRN (16:35)
[2016-11-27] MEDS ORDERED: MetoCLOpramide 5 mg/mL 2 mL Inj IVPUSH PRN (16:35)
[2016-11-27] MEDS ORDERED: Atropine 0.4 mg/mL Inj IVPUSH PRN (16:35)
[2016-11-27] MEDS ORDERED: EPHEDrine Sulfate 50 mg/mL Inj IVPUSH PRN (16:35)
[2016-11-27] MEDS ORDERED: Labetalol 5 mg/mL 4 mL Inj IV PRN (16:35)
--- NOTE | 2016-11-27 17:07 | PCM.ANEP1 ---
Post Anesthesia Phase 1 PACU Phase 1 Assessment Vital Signs Vital Signs Date Time Temp Pulse Resp B/P Pulse Ox O2 Delivery O2 Flow Rate FiO2 11/27/16 14:17 36.5 79 15 102/58 100 Room Air 11/27/16 11:35 36.4 122 20 117/75 100 Room Air Anesthetic Administered: GA Level of Alertness: Sleeping, hard to arouse ZAVALETA's with Equal Strength: Yes Pain: No Nausea or Vomiting: No Cardiovascular Function and Hy: Yes Airway Device: Oralpharangeal Airway Oxygen Delivery: Simple Mask Lungs: Clear to Auscultation, Normal Air Movement Complications: No Follow up Care: No Patient Instructions Provided: Yes (per surgeon) Comments VSS see RN notes Heriberto Benjamin MD Nov 27, 2016 17:07
[2016-11-27] MEDS: HYDROmorphone 1 mg/mL Inj IVPUSH PRN ×2 (17:23→17:42)
[2016-11-27] MEDS: fentaNYL-PF 50 mCg/mL 2 mL Inj IVPUSH PRN ×2 (17:30→17:35)
--- NOTE | 2016-11-27 18:16 | NUR ---
POST OP POST OP ADMIT comes from PACU A&OX4. giggling and laughing with boyfriend seemingly in no pain. IJ in right Jugular. R and L buttock abscesses dressings Clean and intact. Wet strike through form wet packing. RA. Denies CP, SOB, Nausea. MAEE. Care continues
--- NOTE | 2016-11-27 18:20 | OP ---
[address] [address] OPERATIVE REPORT PATIENT: GIDEON GREGORIO : 1990 MR#: [id number] ADMIT: 11/27/2016 JOB ID: [id number] DATE OF SURGERY: 11/27/2016 PREOPERATIVE DIAGNOSIS(ES): 1. Large left buttock abscess. 2. Two right buttock abscesses. 3. Heroin addiction. POSTOPERATIVE DIAGNOSIS(ES): 1. Large left buttock abscess. 2. Two right buttock abscesses. 3. Heroin addiction. PROCEDURE: 1. Incision and drainage large left buttock abscess, complex. 2. Incision and drainage Medium-sized superior right buttock abscess, complex. 3. Incision and drainage smaller right inferior buttock abscess, complex. SURGEON: Vipin Posey MD. SHOE PARTS CASER: None. INDICATIONS: A 26-year-old female, who has heroin addiction. she has had multiple admissions to [facility] for incision and drainage of recent soft tissue abscesses from heroin addiction. Since August of this year, she has had four trips to the operating room. She presented to the emergency department with again another set of abscesses, and after discussing options with the patient, it was elected to proceed with incision and drainage of her three abscesses, as described above. The CT scan of her pelvis only described two, but I think in retrospect, I can see the 3rd one, and it was present on physical exam. FINDINGS: I drained approximately 20 cc of pus out of her large left buttock abscess, 10 cc out of the upper right buttock abscess, and 5-7 cc out of her lower right buttock abscess. There was no evidence of necrotizing soft tissue infection. DESCRIPTION OF PROCEDURE: At the beginning and end of the operation, the SCOAP checklist was completed. A general endotracheal anesthetic was induced. She was placed on a koch bag, carefully padded and partially rotated anteriorly. All pressure points protected. Using Betadine, her buttocks were prepped and draped in the usual fashion. Using separate syringes and 18-gauge needles, all three abscesses were aspirated and they were sent for culture individually. Transverse incisions were made over all three abscesses, all completely drained, loculations broken, and all three abscesses irrigated with saline. They were then packed with 1-inch vag packing covered by 4x4's and an ABD, and mesh patties were placed to hold the dressings. The estimated blood loss was 15 cc. There were no apparent complications. She was transferred to the recovery room in stable condition. The final sponge, needle and instrument counts were announced as correct.
--- NOTE | 2016-11-27 18:30 | NUR ---
MALINA CORREA Pt requests to leave AMA. She states that she understands the risks of leaving and understands that she will receive no pain medication after signing the form. Pt understands that she will receive no prescriptions for medications or antibiotics. Pt chooses to leave AMA considering all of the above. Discusses risks including infection, bleeding, shock, . EJ removed pressure dressing placed over site. Pt leaves with no dressing change materials. Leaves on foot with boyfriend to front to meet mother who will pick her up to take her and her boyfriend home. Care discontinues
[2016-11-27] MEDS ORDERED: fentaNYL-PF 50 mCg/mL 2 mL Inj ONE (18:37)
[2016-11-27] MEDS ORDERED: Propofol 10,000 mCg/mL 20 mL Inj ONE (18:37)
[2016-11-27] MEDS ORDERED: Succinylcholine Chloride 20 mg/mL 5 mL Inj ONE (18:37)
[2016-11-27] MEDS ORDERED: Ketamine 10 mg/mL 20 mL Inj ONE (18:37)
[2016-11-27] MEDS ORDERED: Clindamycin Inj 900 MG in IV Premix 1 EACH IV SCH (23:30)
== END 2016-11-27 18:38 | disposition left against medical advice (07) ==
LOC: SED 11:30 → ORA 15:17 → INTOOBSV 18:12 → OSC 18:12
PROVIDERS: ADMIT Internal Medicine; ATTEND Internal Medicine
PROC: 0J990ZZ Drainage of Buttock Subcutaneous Tissue and Fascia, Open Approach (ICD-10-PCS; principal; 2016-11-27 16:00)
DX: L02.31 Cutaneous abscess of buttock (principal); F11.20 Opioid dependence, uncomplicated; R82.90 Unspecified abnormal findings in urine; F17.210 Nicotine dependence, cigarettes, uncomplicated
CPT/HCPCS: 10061; 36415; 72193; 80053; 81000; 81025; 83605; 85025; 85610; 87040; 87070; 87075; 87086; 87088; 87186; 87205; 93005; 96361; 96365; 96375; 96376; 99285; J0330; J2250; J2270; J2405; J2543; J3010; J7030; J7120; Q9967

== ENCOUNTER 2016-12-31 14:49 | Emergency (ER) | payer OTHER ==
[2016-12-31 14:54] VITALS: BP 137/94; PULSE 97; RESP 16; O2SAT 99
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
[2016-12-31] MEDS ORDERED: KLO1T PO (16:27)
[2016-12-31] MEDS ORDERED: BUPR8TAB2 SL (16:27)
[2016-12-31 16:37] VITALS: BP 129/64; PULSE 89; RESP 16; O2SAT 99
== END 2016-12-31 16:38 | disposition home or self-care (01) ==
LOC: SED 14:49
DX: F11.10 Opioid abuse, uncomplicated (principal); F43.10 Post-traumatic stress disorder, unspecified; F17.200 Nicotine dependence, unspecified, uncomplicated; Z88.1 Allergy status to other antibiotic agents